=== PATIENT | female | born 1985 | race Caucasian/White ===

== ENCOUNTER 2023-05-28 11:21 | Outpatient (CLI) | payer OTHER, SELFPAY | END 2023-05-28 11:22 | disposition home or self-care (01) | PROVIDERS: PCP Family Medicine; Visit Provider Family Medicine | DX: Z00.00 Encounter for general adult medical examination without abnormal findings (principal); R53.83 Other fatigue; G43.909 Migraine, unspecified, not intractable, without status migrainosus | CPT/HCPCS: 82671; 83001; 83002; 84144 ==

== ENCOUNTER 2023-11-17 13:39 | Outpatient (CLI) | payer OTHER, SELFPAY ==
--- OUTSIDE RECORDS SUMMARY | 2023-11-17 13:42 | XMS_ITS | Clinical Summary ---
Author Name Unknown Organization [facility] Address [place], [place] [address] Care Team Providers Care Bus Trolley And Taxi Instructor Name Role Phone [facility] Primary Care Provider Allergies Active Allergy Reactions Criticality Noted Date Comments Duloxetine Rash,Vomiting High 10/03/2009 Sumatriptan Dyspnea,Tachycardia 09/18/2016 Medications Medication Sig Dispensed Refills Start Date End Date Status rizatriptan (MAXALT JIG OPERATOR) 10 mg disintegrating tabletIndications:Migra ine without aura and without status migrainosus, not intractable Place 1 tablet on the tongue 2 times daily if needed for Migraine. Give at minimum 2hrs apart. Max Dose: 30mg per 24hrs. 9 tablet 1 06/24/2018 Active ondansetron (ZOFRAN ODT) 8 mg disintegrating tabletIndications:Migra ine without aura and without status migrainosus, not intractable Place 1 tablet on the tongue every 8 hours if needed for Nausea/Vomiting . 20 tablet 08/04/2018 Active Active Problems Problem Noted Date Diagnosed Date Menstrual migraine without s tatus migrainosus, not intractable 01/05/2017 ASCUS of cervix with negative high risk HPV 11/2016 Overview: 12/22/2016: ASCUS / HPV negative PLAN: Cotest in 3 years (DUE: 12/2019) Migraine without aura and wi thout status migrainosus, not intractable 03/14/2015 Shoulder dystocia, delivered, current hospitaliz ation 01/13/2013 Vacuum extraction, delivered, current hospitaliz ation 01/12/2013 Post term over 40 weeks 01/12/2013 Personal history of scoliosis 01/12/2013 Overview: Bilateral rods placed in 7th grade Adjustment disorder with mixed anxiety and depre ssed mood 08/23/2011 Overview: PHQ=3 01/29/2012 Migraine headache 08/29/2009 Papanicolaou smear of cervix with low grade squamous intraepithelial lesion (LGSIL) 07/06/2007 Resolved Problems Problem Noted Date Diagnosed Date Resolved Date Migraine, unspecified, witho ut mention of intractable migraine without mention of status migrainosus 04/27/2008 08/29/2009 HEADACHE - NOS 05/11/2003 08/29/2009 Immunizations Name Administration Dates Next Due AMB INFLUENZA, IIV4 (AGE=>6MOS) MDV (Flu Clinic Only) 07/03/2017 Hepatitis B (Adult) 05/05/2011 Td (Age >=7 Years) 01/17/2002 Tdap 10/27/2012,05/05/2011 Family History Medical History Relation Name Comments Other Brother migraine Hypertension Father Other Father MIgraine Cancer Mother throat Genetic Other 1 Alcoholism~Fath er CAD,HTN, depression Genetic Other 2 Mother, have al cohol problem.~Father CAD,HTN, depression~No hisotry of cancer. Other Sister MIgraine, immun e disease - unknown Thyroid Disease No Family History Relation Name Status Comments Brother Father Mother Other 1 Other 2 Sister Social History Tobacco Use Types Packs/Day Years Used Date Smoking Tobacco: Former Cigarettes 0.5 11.3 0 07/20/1997 - 11/01/2008 Smokeless Tobacco: Never Tobacco Cessation:Counseling Given: No Alcohol Use Standard Drinks/Week Comments Yes 0 (1 standard drink = 0.6 oz pur e alcohol) occassionally PHQ-2 Answer Date Recorded PHQ-2 Score 0 09/19/2018 Sex and Gender Information Value Date Recorded Sex Assigned at Not on file Gender Identity Not on file Sexual Orientation Not on file Obstetrics History Para Term AB IAB SAB Ectopic Multiple Livin g Live Births 1 1 1 1 1 Date Outcome GA Total Labor Labor/2nd/3rd Weight Sex Delivery Anes PTL Hayde A1 A5 Name Cl in 01/12 Term 40w 5d F VAGINAL VACU Epidu ral Candy ng 6 9 FULTO N,BAB Y GIRL Delivery Location:[facility] Last Filed Vital Signs Vital Sign Reading Time Taken Comments Blood Pressure 108/64 11/05/2018 12:14 PM CDT Pulse 88 11/05/2018 12:14 PM CDT Temperature 37.2 ??C (99 ??F) 12/24/2016 2:32 PM CDT Respiratory Rate 16 05/30/2015 2:18 PM ED[facility]YER Oxygen Saturation 98% 05/20/2017 4:14 PM CDT Inhaled Oxygen Concentration - - Weight 54 kg (119 lb) 11/05/2018 12:14 PM CDT Height 154.9 cm (5' 1) 11/05/2018 12:14 PM CDT Body Mass Index 22.48 11/05/2018 12:14 PM CDT Plan of Treatment Health Maintenance Due Date Last Done Comments HIV for age 15-65 10/05/1998 Hepatitis C screening for age 18-79 10/05/2001 Depression screening for age 12+ 12/02/2018 12/02/2017, 09/18/2016, 09/12/2015 BMI (ht and wt on same day) for age 18+ 11/06/2019 11/05/2018, 09/29/2017, 03/25/2017, Additional history exists Tetanus booster 10/27/2022 10/27/2012, 04/19, 01/17/2002 COVID-19 vaccine series ( season) 2023 Influenza for age 9-49 03/20/2024 07/03/2017 Pap test for age 21-65 12/03/2024 2, 12/03/2021, 12/22/2016, Additional history exists Tdap Completed 10/27/2012, 05/05/2011 Pneumococcal series for age 6-64 Aged Out No longer eligible based on patient's age to complete this topic Procedures Procedure Name Priority Date/Time Associated Diagnosis Comments HPV THIN PREP Routine 12/03/2021 1:30 PM CDT from Last 3 Months or Most Recently Relevant to Health Maintenance Results * HPV HIGH RISK (12/03/2021 1:30 PM CDT) TYPE 16 Negative Negative 12/09/2021 11:00 AM CDT [facility] TYPE 18 Negative Negative 12/09/2021 11:00 AM CDT [facility] OTHER HIGH RISK TYPES Negative Negative 12/09/2021 11:00 AM CDT [facility] Other (Cervical/Vagina l) 12/03/2021 1:30 PM CDT 12/04/2021 4:48 PM CDT Narrative [facility] - 12/09/2021 11:00 AM CDT HPV types 16, 18, 31, 33, 35, 39, 45, 51, 52, 56, 58, 59, 66 and 68 DNA were undetectable or below the pre-set threshold. Methodology: Breanna Honorio 4800 HPV Test October Kina [employer]MAN [employer] [facility] [address] [place] [address], from Last 3 Months or Most Recently Relevant to Health Maintenance Advance Directives * Full Code (Latest Code Status on File) Date Activated Date Inactivated Comments 01/12/2013 7:17 PM 01/14/2013 5:51 PM * Full Code Date Activated Date Inactivated Comments 01/12/2013 3:20 AM 01/12/2013 7:17 PM * Full Code Date Activated Date Inactivated Comments 01/11/2013 11:36 AM 01/11/2013 7:25 PM Care Teams Bus Trolley And Taxi Instructor Relationship Specialty Start Date End Date Matthew Machado [id number] [address] [place] [id number] PCP - General 03/08/18
[2023-11-17 19:48] LABS: Bacterial Vaginosis* Negative (Negative); Candida glab/krus NOT DETECTED (No Detected); Candida species NOT DETECTED (No Detected); Trichomonas vaginalis NOT DETECTED (No Detected)
== END 2023-11-17 13:40 | disposition home or self-care (01) ==
PROVIDERS: PCP Family Medicine; Visit Provider Obstetrics & Gynecology
DX: R10.2 Pelvic and perineal pain (principal)
CPT/HCPCS: 81513; 87086; 87481; 87661